=== PATIENT | male | born 1940 | race Caucasian/White ===

== ENCOUNTER 2017-10-06 14:45 | Emergency (ER) | payer OTHER ==
[~2017-10-06] VITALS: Ht 177.8 cm; Wt 99.8 kg
[2017-10-06 16:16] LABS: APPEARANCE CLEAR ((CLEAR)); BILIRUBIN NEGATIVE; BLOOD NEGATIVE; COLOR YELLOW ((YELLOW)); GLUCOSE (STRIP) >=500; KETONES NEGATIVE; LEUKOCYTES NEGATIVE; NITRITE NEGATIVE; PROTEIN (STRIP) NEGATIVE; SPECIFIC GRAVITY 1.008 (1.000-1.030); UCUL ADDED? NO; UROBILINOGEN 0.2 MG/DL (0.2-1.0)
[2017-10-06 16:17] LABS: HEMATOCRIT 42.4 % (38.0-50.0); HEMOGLOBIN 15.6 G/DL (12.5-16.6); MCH 33.8 PG (29.0-34.0); MCHC 36.8 G/DL (30.0-36.0); MCV 91.8 FL (86-99); PLATELET COUNT 255 K/uL (156-360); RBC DIS.WIDTH-CV 12.4 % (11.8-14.6); RBC DIS.WIDTH-SD 41.1 % (39-53); RED BLOOD COUNT 4.62 M/uL (4.00-5.50); WHITE BLOOD COUNT 10.1 K/uL (4.1-10.2)
[2017-10-06 16:24] LABS: CHLORIDE 105 mEq/L (99-109); SODIUM 139 mEq/L (136-147)
[2017-10-06 16:26] LABS: GLUCOSE 136 mg/dL (70-99)
[2017-10-06 16:30] LABS: CREATININE 1.2 mg/dL (0.6-1.3); GFR ESTIMATE (CALCULATED) > 59 mL/min/ (58.99-99999)
[2017-10-06 16:31] LABS: UREA NITROGEN (BUN) 13 mg/dL (9-23)
[2017-10-06 16:37] LABS: D-DIMER ELISA < 150.00 ng/mLDDU (<230)
[2017-10-06 17:01] LABS: TROP-I INTERPRETATION NEGATIVE; TROPONIN-I < 0.01 ng/mL (0.0-0.30)
[2017-10-06] MEDS ORDERED: PERCOCET 5/31 TABLET PO (18:23)
[2017-10-06 18:36] VITALS: BP 128/90
== END 2017-10-06 18:38 | disposition home or self-care (01) ==
LOC: EME 14:45
PROVIDERS: Physician Assistant Medical
DX: M48.54XA Collapsed vertebra, not elsewhere classified, thoracic region, initial encounter for fracture (principal); I44.0 Atrioventricular block, first degree; R94.31 Abnormal electrocardiogram [ECG] [EKG]; K57.30 Diverticulosis of large intestine without perforation or abscess without bleeding; I25.10 Atherosclerotic heart disease of native coronary artery without angina pectoris; R93.5 Abnormal findings on diagnostic imaging of other abdominal regions, including retroperitoneum
CPT/HCPCS: 71046; 74176; 80048; 81003; 84484; 85027; 85379; 93005; 99281; 99284